=== PATIENT | female | born 1980 | race Two or more races ===

== ENCOUNTER → 2016-10-16 | Outpatient (CLI) | payer OTHER ==
--- NOTE | 2016-10-16 14:17 | DX ---
Left Rib Series With PA Chest - Two Views October 16, 2016 Indication: Left-sided rib pain. Technique: PA view and two oblique views of the left hemithorax. Findings: A BB, demarcating the site of pain, overlies the low left 11th rib in the midaxillary line. No underlying fracture or bone lesion. The lungs are well aerated and clear. No pneumothorax, atelec tasis or effusion. Heart size normal. Impression: Clear lungs. No rib fracture or pneumothorax.
== END ==
LOC: CLAB 12:27 → EDSTATUS 12:29 → CIMAGING 12:29
PROVIDERS: ATTEND Family Medicine
DX: R07.81 Pleurodynia (principal)
CPT/HCPCS: 71101-PO